=== PATIENT | female | born 1940 | race Caucasian/White ===

== ENCOUNTER 2018-02-28 05:18 | Emergency (ER) | payer OTHER ==
[~2018-02-28] VITALS: Ht 162.6 cm; Wt 62.1 kg
[~2018-02-28 05:18] MED LIST: HYDROCHLOROTH12.5 M1 PO; IBUPROFEN400 MG PO; IMITREX50 MG PO; MAXALT10 MG PO; TOPROL XL25 MG PO
[2018-02-28 06:40] LABS: HEMOGLOBIN 11.4 G/DL (11.9-15.5); MCH 31.7 PG (29.0-34.0); MCHC 33.5 G/DL (30.0-36.0); MCV 94.4 FL (83-99); PLATELET COUNT 184 K/uL (156-360); RBC DIS.WIDTH-CV 13.4 % (11.8-14.6); RBC DIS.WIDTH-SD 46.5 % (39-53); WHITE BLOOD COUNT 5.3 K/uL (4.1-10.2)
[2018-02-28 07:04] LABS: CHLORIDE 108 MEQ/L (99-109); POTASSIUM 3.6 MEQ/L (3.7-5.4); SODIUM 142 MEQ/L (136-147)
[2018-02-28 07:10] LABS: CREATININE 0.7 MG/DL (0.6-1.3); GFR ESTIMATE (CALCULATED) > 59 mL/min/; GLUCOSE 90 mg/dL (70-99); UREA NITROGEN (BUN) 17 mg/dL (9-23)
[2018-02-28 08:59] VITALS: BP 131/67
== END 2018-02-28 09:03 | disposition home or self-care (01) ==
LOC: EME 05:18
PROVIDERS: Emergency Medicine
DX: M54.2 Cervicalgia (principal); M62.838 Other muscle spasm; R20.2 Paresthesia of skin
CPT/HCPCS: 70490; 80048; 85027; 99281; 99284

== ENCOUNTER 2018-04-27 21:08 | Emergency (ER) | payer OTHER ==
[~2018-04-27] VITALS: Ht 162.6 cm; Wt 59.2 kg
[2018-04-27] MEDS ORDERED: AUGMENTIN500 MG PO (23:07)
[2018-04-27 23:20] VITALS: BP 150/88
== END 2018-04-27 23:22 | disposition home or self-care (01) ==
LOC: EME 21:08
DX: S01.511A Laceration without foreign body of lip, initial encounter (principal); S40.812A Abrasion of left upper arm, initial encounter; S40.811A Abrasion of right upper arm, initial encounter; W55.03XA Scratched by cat, initial encounter; Z23 Encounter for immunization; I10 Essential (primary) hypertension; Z88.2 Allergy status to sulfonamides; Z85.3 Personal history of malignant neoplasm of breast
CPT/HCPCS: 99281; 99284